=== PATIENT | female | born 1965 | race Caucasian/White ===

== ENCOUNTER 2020-03-26 16:36 | Inpatient (IN) | payer OTHER, MEDICAID ==
[~2020-03-26] VITALS: Ht 167.6 cm; Wt 163.4 kg
[~2020-03-26 16:36] MED LIST: GLIP10TA9 PO; LISI-646 PO; OMEP20CA74 OR; ONDA-144 PO; SOTA80TA PO; WARF10TA PO
[2020-03-26] MEDS ORDERED: ASPirin 81 mg TAB PO ONE (17:30)
[2020-03-26] MEDS ORDERED: NITROGLYCERIN 0.4 MG SL TAB SL ONE (17:30)
[2020-03-26] MEDS ORDERED: HYDROcodone-ACET 5/325MG TAB PO PRN (18:00)
[2020-03-26] MEDS ORDERED: NITROGLYCERIN 0.4 MG SL TAB SL PRN (18:00)
[2020-03-26] MEDS ORDERED: IOHEXOL 350 MG/ML 100ML IJ ONE (18:24)
[2020-03-26 19:05] LABS: Chloride 107 mmol/L (98-107); Sodium 139 mmol/L (136-145)
[2020-03-26 19:11] LABS: Alanine Aminotransferase 27 U/L (13-56); Albumin 3.9 g/dL (3.4-5.0); Alkaline Phosphatase 123 U/L (45-117); Anion Gap 8 (5-15); Aspartate Aminotransferase 23 U/L (15-37); BUN/Creatinine Ratio 15.7; Basophils # (auto) 0 10 ^3/uL (0-0.2); Basophils % (auto) 0.3 % (0.0-2.0); Bilirubin, Total 0.5 mg/dL (0.2-1.0); Blood Urea Nitrogen 13 mg/dL (7-18); Calcium 8.6 mg/dL (8.5-10.1); Carbon Dioxide 24 mmol/L (21-32); Eosinophils # (auto) 0.2 10 ^3/uL (0-0.8); Eosinophils % (auto) 1.8 % (0.0-7.0); GFR African American 91 mL/min; GFR Non-African American 76 mL/min; Glucose 132 mg/dL (74-106); Hematocrit 48.7 % (36.0-46.0); Hemoglobin 16.5 g/dL (12.2-16.2); Lymphocytes # (auto) 2.7 10 ^3/uL (0.4-5.4); Lymphocytes % (auto) 24.6 % (10.0-50.0); Magnesium 2.2 mg/dL (1.6-2.6); Mean Corpuscular Hgb Conc. 33.9 g/dL (32.0-36.0); Mean Corpuscular Volume 88.5 fL (80.0-100.0); Monocytes # (auto) 0.8 10 ^3/uL (0-1.3); Neutrophils # (auto) 7.4 10 ^3/uL (1.6-8.6); Neutrophils % (auto) 66.3 % (37.0-80.0); Nucleated Red Blood Cells % 0.3 %; Platelet Count (auto) 328 10^3/uL (140-450); Red Cell Distribution Width 14.5 % (11.8-14.3); White Blood Cell 11.2 10^3/uL (4.4-10.8)
[2020-03-26] MEDS: MORPHINE SULF INJ 2 MG/ML SYRINGE 1ML IV PRN (20:37)
[2020-03-26 20:55] VITALS: BP 138/95
[2020-03-26 22:50] VITALS: BP 138/95
[2020-03-27] MEDS ORDERED: RIVA10TA PO (01:02)
[2020-03-27] MEDS ORDERED: CLOP75TA28 PO (01:03)
[2020-03-27] MEDS ORDERED: PRAV20TA3 PO (01:03)
[2020-03-27] MEDS ORDERED: FURO1TAB31 PO (01:03)
[2020-03-27] MEDS ORDERED: MORP1TAB14 PO (01:03)
[2020-03-27] MEDS ORDERED: HYDR-531 PO (01:03)
[2020-03-27] MEDS ORDERED: NIT01P TD (01:03)
[2020-03-27 01:05] LABS: Lipase 117 U/L (73-393)
[2020-03-27 03:15] VITALS: BP 131/82
[2020-03-27] MEDS: MORPHINE SULF INJ 2 MG/ML SYRINGE 1ML IV PRN ×5 (03:17→23:51)
[2020-03-27 05:00] VITALS: BP 146/88
[2020-03-27 09:00] VITALS: BP 144/80
[2020-03-27] MEDS ORDERED: MORPHINE SULF INJ 2 MG/ML SYRINGE 1ML IV PRN (10:00)
[2020-03-27] MEDS ORDERED: diphenhdrAMINE HCL 50 MG/1 ML VL IV ONE (12:00)
[2020-03-27] MEDS ORDERED: NIFEdipine ER 30 MG TAB PO SCH (12:30)
[2020-03-27] MEDS ORDERED: CLOPIDOGREL BISULFATE 75 MG TAB PO SCH (12:30)
[2020-03-27] MEDS: FAMOTIDINE 20 MG TAB PO SCH ×2 (15:12→21:07)
[2020-03-27 17:00] VITALS: BP 157/83
[2020-03-27] MEDS ORDERED: RIVAROXABAN 20 MG TAB PO SCH (18:00)
[2020-03-27 22:00] VITALS: BP 125/82
[2020-03-28] MEDS: MORPHINE SULF INJ 2 MG/ML SYRINGE 1ML IV PRN (04:44)
[2020-03-28 05:00] VITALS: BP 140/81
[2020-03-28] MEDS ORDERED: CLOPIDOGREL BISULFATE 75 MG TAB PO SCH (10:00)
== END 2020-03-28 09:40 | disposition left against medical advice (07) | DRG 313 ==
LOC: ER 16:36 → TELE 16:37 → TELE-CENTR 16:38
PROVIDERS: ADMIT Specialist; ATTEND Internal Medicine
DX: R07.89 Other chest pain (principal); I50.9 Heart failure, unspecified; I11.0 Hypertensive heart disease with heart failure; E11.9 Type 2 diabetes mellitus without complications; I48.0 Paroxysmal atrial fibrillation; E66.01 Morbid (severe) obesity due to excess calories; F12.90 Cannabis use, unspecified, uncomplicated; F17.210 Nicotine dependence, cigarettes, uncomplicated; G47.33 Obstructive sleep apnea (adult) (pediatric); F32.9 Major depressive disorder, single episode, unspecified; J44.9 Chronic obstructive pulmonary disease, unspecified; Z53.29 Procedure and treatment not carried out because of patient's decision for other reasons; Z79.01 Long term (current) use of anticoagulants; Z79.84 Long term (current) use of oral hypoglycemic drugs; Z95.0 Presence of cardiac pacemaker; Z82.5 Family history of asthma and other chronic lower respiratory diseases; Z82.61 Family history of arthritis; Z85.118 Personal history of other malignant neoplasm of bronchus and lung; Z86.73 Personal history of transient ischemic attack (TIA), and cerebral infarction without residual deficits; Z87.442 Personal history of urinary calculi; Z90.49 Acquired absence of other specified parts of digestive tract; Z90.710 Acquired absence of both cervix and uterus; Z91.19 Patient's noncompliance with other medical treatment and regimen; Z88.8 Allergy status to other drugs, medicaments and biological substances; Z88.1 Allergy status to other antibiotic agents; Z88.0 Allergy status to penicillin; Z88.7 Allergy status to serum and vaccine
CPT/HCPCS: 36415; 71046; 71275; 80053; 83690; 83735; 84484; 85025; 87081; 93005; 93306; G0378